=== PATIENT | male | born 1980 | race Caucasian/White ===

== ENCOUNTER 2021-06-12 23:43 | Emergency (ER) | payer OTHER, SELFPAY ==
--- NOTE | ~2021-06-12 | XR_ITS ---
EXAMINATION: XR chest 1V portable INDICATION: Cough and fever TECHNIQUE: Portable AP chest at 0020 hours COMPARISON: None available FINDINGS: There are minimal right suprahilar and left basilar airspace opacities. No pleural effusion or pneumothorax is identified. The cardiomediastinal silhouette is normal. IMPRESSION: 1. Minimal bilateral airspace opacities, consistent with atelectasis versus pneumonia. Reviewed, dictated and finalized at location [facility] IMPRESSION: 1. Minimal bilateral airspace opacities, consistent with atelectasis versus pne umonia.
--- NOTE | 2021-06-12 23:53 | ED.URI ---
HPI - URI/Sore Throat General Chief Complaint: Fever Stated Complaint: possible covid Source: patient and RN notes reviewed Mode of arrival: ambulatory Limitations: no limitations History of Present Illness HPI Narrative: Patient states he has felt ill for about 5 days. He went and had a COVID test 5 days ago and it was negative at the drive-through at [facility]. He went back to work on 2 days ago and that evening he felt much worse again with fever cough body aches headache. He denies nausea vomiting. Says that he feels soreness in his chest as well and shortness of breath with exertion. MD elicited complaint: fever and cough Consistency: progressively worsening Severity: moderate Associated symptoms: fever, myalgias and shortness of breath Related Data Allergies Allergy/AdvReac Type Severity Reaction Status Date / Time No Known Allergies Allergy Verified 06/13/21 00:06 Review of Systems Review of Systems: All systems reviewed & are unremarkable except as noted in HPI and below Gastrointestinal: Gastrointestinal: Denies diarrhea, Denies nausea and Denies vomiting Neurologic: Reports headache(s) PMFSH Past Medical History Medical History (Updated 06/13/21 @ 02:15 by Lyle Hernandez MD) No active medical problems Surgical History Surgical History (Updated 06/13/21 @ 00:06 by Lyle Hernandez MD) No pertinent past surgical history Social History Social History (Updated 06/13/21 @ 00:06 by Lyle Hernandez MD) Smoking packs per day: 1 Smoking cigarettes per day: 20.0 Smoking status: Current every day smoker Tobacco type: cigarettes Exam Const: General: no acute distress, alert and ill appearing acutely Nutritional Appearance: well nourished and obese centrally obese Orientation/consciousness: patient oriented x3 HENMT: Head: normal to inspection Ears: external ears normal General nose exam: Normal external nose present Eyes: Conjunctivae: conjunctivae normal Pupils: Equal, round and reactive pupils present EOM: EOMs intact bilaterally Neck: Neck: normal visual inspection Resp: Effort & Inspection: normal respiratory effort Auscultation: clear to auscultation bilaterally Cardio: Rate: regular rate Rhythm: regular rhythm GI: GI Palp: Yes Soft to palpation and No Tenderness to palpation present (GI) Auscultation: normal bowel sounds Back/Spine/Pelvis: Cervical Spine: cervical ROM normal Thoracic/Lumbar Spine: thoraco-lumbar ROM normal Skin: General skin exam: normal color Rashes: no rashes Neuro: General: patient oriented x3, moves all extremities, no meningeal signs, no focal motor deficits and CN's II-XI intact bilaterally Speech: normal speech Gait exam (Neuro): Normal gait present Extrem: General: no clubbing, cyanosis or edema Psych: Appearance: grossly normal and well kempt Mental Status: mental status grossly normal Affect: normal affect Attitude: cooperative Thought content: Yes Normal thought content present Course Vital Signs Vital signs: Vital Signs Temperature 37.6 C 06/13/21 00:07 Pulse Rate 114 H 06/13/21 00:07 Respiratory Rate 24 H 06/13/21 00:07 Blood Pressure 151/83 H 06/13/21 00:07 Pulse Oximetry 95 06/13/21 00:07 Temperature 37.1 C 06/13/21 02:30 Pulse Rate 103 H 06/13/21 02:30 Respiratory Rate 22 H 06/13/21 02:30 Blood Pressure 148/72 H 06/13/21 02:30 Pulse Oximetry 96 06/13/21 02:30 MDM - URI/Sore Throat Lab Data Result diagrams: 06/13/21 00:44 06/13/21 00:44 Labs: Lab Results 06/12/21 06/13/21 06/13/21 Range/Units 23:54 00:44 00:44 WBC 6.2 (4.8-10.8) K/mm3 RBC 4.97 (4.70-6.10) M/mm3 Hgb 14.9 (14.0-18.0) g/dL Hct 44.7 (40.0-54.0) % MCV 89.9 (78.0-102.0) fL MCH 30.0 (27.0-31.0) pg MCHC 33.3 (32.0-36.0) g/dL RDW 11.8 (11.6-14.4) % Plt Count 163 (150-420) K/mm3 MPV 11.0 (8.7-11.0) fl Immature Gran % (Auto) 1.0 H (0.0-
[2021-06-13 00:07] VITALS: BP 151/83; PULSE 114; RESP 24; TEMP 37.6; O2SAT 95
[2021-06-13 00:12] VITALS: PULSE 114; RESP 24; O2SAT 95
[2021-06-13 00:43] LABS: SARS-CoV-2 RNA PCR Positive (Negative)
[2021-06-13 00:53] LABS: Basophils Absolute Auto 0.04 K/mm3 (0.00-0.10); Basophils Percent Auto 0.6 % (0.0-1.0); Eosinophils Absolute Auto 0.14 K/mm3 (0.02-0.50); Eosinophils Percent Auto 2.3 % (1.0-6.0); Hematocrit 44.7 % (40.0-54.0); Hemoglobin 14.9 g/dL (14.0-18.0); Immature Granulocyte Absolute 0.06 K/mm3 (0.00-0.00); Lymphocytes Absolute Auto 0.49 K/mm3 (1.10-4.50); Lymphocytes Percent Auto 7.9 % (18.0-42.0); Mean Corpuscular HGB Conc 33.3 g/dL (32.0-36.0); Mean Corpuscular Volume 89.9 fL (78.0-102.0); Monocytes Absolute Auto 0.46 K/mm3 (0.10-0.90); Monocytes Percent Auto 7.4 % (2.0-11.0); Neutrophils Percent Auto 80.8 % (50.0-70.0); Platelet Count Result 163 K/mm3 (150-420); Red Blood Count 4.97 M/mm3 (4.70-6.10); Red Cell Distribution Width 11.8 % (11.6-14.4); White Blood Count 6.2 K/mm3 (4.8-10.8)
[2021-06-13 01:16] LABS: Alanine Aminotransferase 89 U/L (16-63); Albumin Level 3.5 g/dL (3.4-5.0); Alkaline Phosphatase 72 U/L (46-116); Anion Gap 12 mmol/L (8-16); Aspartate Amino Transferase 56 U/L (15-37); Bilirubin,Total 0.5 mg/dL (0.00-1.00); Blood Urea Nitrogen 13 mg/dL (7-18); Calcium 8.5 mg/dL (8.5-10.1); Carbon Dioxide 26 mmol/L (21-32); Chloride 98 mmol/L (98-108); Estimated Glomerular Filt Rate > 60; Ferritin 275 ng/mL (26-388); Glucose 146 mg/dL (70-99); Osmolality Calculated 285 mOsm/kg (285-295); Potassium 3.4 mmol/L (3.5-5.1); Sodium 136 mmol/L (136-145); Total Protein 7.4 g/dL (6.4-8.2)
[2021-06-13 01:25] LABS: Lactic Acid Reflex 2.6 mmol/L (0.4-2.0)
[2021-06-13 02:30] VITALS: BP 148/72; PULSE 103; RESP 22; TEMP 37.1; O2SAT 96
== END 2021-06-13 02:32 | disposition home or self-care (01) ==
PROVIDERS: Emergency Provider Emergency Medicine
DX: U07.1 COVID-19 (principal)
CPT/HCPCS: 36415; 71045; 80053; 82728; 83605; 83735; 85025; 86140; 96372; 99283; C9803; J1100; U0003; U0005